=== PATIENT | female | born 1965 | race Caucasian/White ===

== ENCOUNTER 2019-08-30 06:50 | Emergency (ER) | payer BC ==
[2019-08-30] MEDS ORDERED: Morphine 10 MG/ML VIAL ONE (07:39)
[2019-08-30] MEDS ORDERED: Ondansetron PF 4 MG/2 ML Vial ONE (07:40)
[2019-08-30 08:22] LABS: #Basophils 0.1 thou/uL (0.0-0.2); #Eosinphils 0.2 thou/uL (0.0-0.7); #Lymphocytes 1.3 thou/uL (1.20-3.40); #Monocytes 0.5 thou/uL (0.11-0.59); #Neutrophils 3.6 thou/uL (1.40-6.50); %Basophils 1.1 % (0.0-1.0); %Eosinophils 3.6 % (0.0-10.0); %Lymphocytes 22.6 % (21.0-51.0); %Monocytes 9.4 % (0.0-10.0); %Neutrophils 63.3 % (42.0-75.0); Hemoglobin 13.9 g/dL (12.0-16.0); Mean Corpuscular HGB CONC 34.2 g/dL (32.0-36.0); Mean Corpuscular Hemoglobin 31.7 pg (27.0-31.0); Mean Corpuscular Volume 92.7 fL (78.0-98.0); Mean Platelet Volume 9.3 fL (7.4-10.4); Platelet Count 159 thou/uL (130-400); RBC Distribution Width 12.5 % (11.5-14.5); Red Blood Cell (RBC) Count 4.37 mill/uL (4.20-5.40); White Blood Cell (WBC) Count 5.6 thou/uL (4.8-10.8)
[2019-08-30 08:36] LABS: Anion Gap 13 mmol/L (10-20); BUN (Urea Nitrogen) 18 mg/dL (9.8-20.1); Calc. Creatinine Clearance 0 mL/min (70-130); Calcium 9.2 mg/dL (7.8-10.44); Carbon Dioxide 24 mmol/L (22-29); Chloride 106 mmol/L (98-107); Estimated GFR-MDRD 69; Glucose 83 mg/dL (70-105); Potassium 4.8 mmol/L (3.5-5.1); Sodium 138 mmol/L (136-145)
--- NOTE | 2019-08-30 08:39 | CT ---
CT BRAIN WITHOUT CONTRAST: HISTORY: Injury. Fall. Loss of consciousness. FINDINGS: No evidence of acute infarct, hemorrhage, midline shift or abnormal extraaxial fluid collection is se en. The ventricular size is normal and the basilar cisterns are patent. The bony calvarium is intact. The visualized paranasal sinuses and mastoid air cells are well aerated. There is a large scalp cont usion in the right paroccipital region. IMPRESSION: No CT evidence of acute intracranial process. POS: OFF
--- NOTE | 2019-09-02 02:48 | EKG ---
Test Reason : FALL WTIH LOC Blood Pressure : / mmHG Vent. Rate : 067 BPM Atrial Rate : 067 BPM P-R Int : 178 ms QRS Dur : 086 ms QT Int : 406 ms P-R-T Axes : 060 012 045 degrees QTc Int : 429 ms Normal sinus rhythm Normal ECG Confirmed by BERNARD SORIANO MD ([id number]), order editor GUY DE LEON ([id number]) on 09/02/2019 2:48:25 AM Referred By: Confirmed By:BERNARD SORIANO MD
== END 2019-08-30 09:33 | disposition home or self-care (01) ==
LOC: ERS 06:50
DX: R55 Syncope and collapse (principal); S00.03XA Contusion of scalp, initial encounter; M54.5 Low back pain; E78.5 Hyperlipidemia, unspecified; Z79.899 Other long term (current) drug therapy; W18.30XA Fall on same level, unspecified, initial encounter
CPT/HCPCS: 70450; 80048; 85025; 93005; 96374; 96375; J2270; J2405

== ENCOUNTER 2022-04-05 11:19 | Outpatient (CLI) | payer BC ==
[2022-04-06 00:48] LABS: SARS-CoV-2 PCR by NAA Not Detected (NotDetected)
== END 2022-04-05 11:20 | disposition home or self-care (01) ==
LOC: LABBT 11:19
PROVIDERS: ATTEND Specialist
DX: Z20.822 Contact with and (suspected) exposure to COVID-19 (principal)
CPT/HCPCS: U0003; U0005

== ENCOUNTER 2022-04-08 10:31 | Outpatient (CLI) | payer BC | END 2022-04-08 10:32 | disposition home or self-care (01) | LOC: RAD 10:31 | PROVIDERS: ATTEND Specialist | DX: K44.9 Diaphragmatic hernia without obstruction or gangrene (principal) | CPT/HCPCS: 74246 ==

== ENCOUNTER 2022-04-12 07:55 | Outpatient (CLI) | payer BC ==
[2022-04-12 20:00] LABS: SARS-CoV-2 PCR by NAA Not Detected (NotDetected)
== END 2022-04-12 07:56 | disposition home or self-care (01) ==
LOC: LABBT 07:55
PROVIDERS: ATTEND Internal Medicine Gastroenterology
DX: K44.9 Diaphragmatic hernia without obstruction or gangrene (principal); K21.9 Gastro-esophageal reflux disease without esophagitis; Z20.822 Contact with and (suspected) exposure to COVID-19
CPT/HCPCS: U0003; U0005

== ENCOUNTER → 2022-04-14 | Day surgery (SDC) | payer BC | END | disposition home or self-care (01) | LOC: ENDO/OP 12:39 | PROVIDERS: ATTEND Internal Medicine Gastroenterology | DX: K21.9 Gastro-esophageal reflux disease without esophagitis (principal); K44.9 Diaphragmatic hernia without obstruction or gangrene; Z88.0 Allergy status to penicillin; Z88.5 Allergy status to narcotic agent | CPT/HCPCS: 91010 ==

== ENCOUNTER 2022-05-19 08:53 | Outpatient (CLI) | payer BC ==
[2022-05-19] MEDS ORDERED: Iopamidol 370 76% 100 ML VIAL ONE (11:13)
== END 2022-05-19 08:54 | disposition home or self-care (01) ==
LOC: CT 08:53
PROVIDERS: ATTEND Specialist
DX: K44.9 Diaphragmatic hernia without obstruction or gangrene (principal)
CPT/HCPCS: 74177; Q9967

== ENCOUNTER 2023-06-14 08:48 | Outpatient (CLI) | payer BC ==
[2023-06-14 11:42] LABS: Chloride 109 mmol/L (98-107); Potassium 4.7 mmol/L (3.5-5.1); Sodium 141 mmol/L (136-145)
[2023-06-14 11:43] LABS: Anion Gap 17 mmol/L (10-20); BUN (Urea Nitrogen) 18 mg/dL (9.8-20.1); Calc. Creatinine Clearance 0 mL/min (70-130); Calcium 9.4 mg/dL (7.6-10.4); Carbon Dioxide 20 mmol/L (22-29); Estimated GFR 62; Glucose 74 mg/dL (70-105)
[2023-06-14 12:45] LABS: #Basophils 0.1 10x3/uL (0.0-0.2); #Eosinphils 0.3 10x3/uL (0.0-0.5); #Monocytes 0.5 10x3/uL (0.0-1.1); #Neutrophils 2.3 10x3/uL (1.5-8.4); %Basophils 2.1 % (0.0-2.0); %Eosinophils 5.2 % (0.0-6.0); %Lymphocytes 37.3 % (18.0-47.0); %Monocytes 10.4 % (0.0-10.0); %Neutrophils 44.8 % (40.0-75.0); Mean Corpuscular HGB CONC 32.3 g/dL (32.0-36.0); Mean Corpuscular Hemoglobin 30.4 pg (27.0-33.0); Mean Corpuscular Volume 94.1 fl (81.6-98.3); Mean Platelet Volume 11.9 fl (7.4-10.4); Platelet Count 174 10x3/uL (150-450); RBC Distribution Width 14.5 % (11.5-14.5); Red Blood Cell (RBC) Count 4.61 10x6/uL (3.90-5.03); White Blood Cell (WBC) Count 5.2 10x3/uL (3.5-10.5)
[2023-06-14 14:13] LABS: Platelet Clumps SLIGHT; RBC Morph Comment Within Normal Limits
[2023-06-14 14:14] LABS: Platelet Adequacy Comment Appears Adequate
[2023-06-14 14:15] LABS: Large Platelets SLIGHT (None Seen)
== END 2023-06-14 08:49 | disposition home or self-care (01) ==
LOC: LABBT 08:48
PROVIDERS: ATTEND Specialist
DX: Z01.818 Encounter for other preprocedural examination (principal); C50.912 Malignant neoplasm of unspecified site of left female breast
CPT/HCPCS: 71046; 80048; 85025; 93005; 93010

== ENCOUNTER 2023-06-15 07:23 | Outpatient (CLI) | payer BC | END 2023-06-15 07:24 | disposition home or self-care (01) | LOC: SCSMRI 07:23 | PROVIDERS: ATTEND Internal Medicine Gastroenterology | DX: C50.919 Malignant neoplasm of unspecified site of unspecified female breast (principal); R89.8 Other abnormal findings in specimens from other organs, systems and tissues | CPT/HCPCS: 74183 ==

== ENCOUNTER 2023-06-16 07:13 | Day surgery (SDC) | payer BC ==
[2023-06-14 09:20] VITALS: BMI 32.3
[2023-06-16] MEDS ORDERED: Ketorolac Tromethamine 30 MG/ML VIAL ONE (09:56)
[2023-06-16] MEDS ORDERED: Acetaminophen 500 MG TAB ONE (09:56)
[2023-06-16] MEDS ORDERED: Bupivacaine HCl 0.5%/Epinephrine 1:200,000/PF 30 ml Vial ONE (11:19)
[2023-06-16] MEDS ORDERED: Isosulfan Blue 50 MG/5 ML VIAL ONE (11:20)
[2023-06-16] MEDS ORDERED: fentaNYL PF 100 MCG/2 ML SYRINGE ONE ×2 (11:25→11:26)
[2023-06-16] MEDS ORDERED: Famotidine/PF 20 mg/2ml Vial ONE (11:26)
[2023-06-16] MEDS ORDERED: Sodium Chloride 0.9% 100 ML ONE (11:30)
[2023-06-16] MEDS ORDERED: CEFAZOLIN 2 GM VIAL ONE (11:30)
[2023-06-16] MEDS ORDERED: Lidocaine 1% PF 5 ML VIAL ONE (11:46)
[2023-06-16] MEDS ORDERED: PROPOFOL 200 MG/20 ML VIAL ONE (11:46)
[2023-06-16] MEDS ORDERED: Ondansetron PF 4 MG/2 ML Vial ONE (11:46)
[2023-06-16] MEDS ORDERED: Dexamethasone 20 MG/5 ML VIAL ONE (11:46)
[2023-06-16] MEDS ORDERED: ePHEDrine Sulfate 50 MG/10 ML VIAL ONE (11:46)
[2023-06-16] MEDS ORDERED: Lidocaine 2% PF 5 ML VIAL ONE (11:54)
== END 2023-06-16 15:15 | disposition home or self-care (01) ==
LOC: SDC 07:13
PROVIDERS: ATTEND Specialist
PROC: 0HBU0ZZ Excision of Left Breast, Open Approach (ICD-10-PCS; principal; 2023-06-16)
DX: C50.912 Malignant neoplasm of unspecified site of left female breast (principal); Z88.0 Allergy status to penicillin; Z88.6 Allergy status to analgesic agent; M06.9 Rheumatoid arthritis, unspecified; Z79.899 Other long term (current) drug therapy
CPT/HCPCS: 76098; 78195; 88307; 88342; A9541; C1713; J1100; J1885; J2001; J2405; J2704; J3490; Q9968; S0028

== ENCOUNTER 2023-07-19 08:16 | Day surgery (SDC) | payer BC ==
[2023-07-15 11:00] VITALS: BMI 32.9
[2023-07-19] MEDS ORDERED: Ketorolac Tromethamine 30 MG/ML VIAL ONE (08:35)
[2023-07-19] MEDS ORDERED: Acetaminophen 500 MG TAB ONE (08:35)
[2023-07-19] MEDS ORDERED: EPINEPHrine 1 MG/ML AMP ONE (08:50)
[2023-07-19] MEDS ORDERED: Bupivacaine 0.25% HCL 30 ML VIAL ONE (08:50)
[2023-07-19] MEDS ORDERED: fentaNYL PF 100 MCG/2 ML SYRINGE ONE (08:53)
[2023-07-19] MEDS ORDERED: Sodium Chloride 0.9% 100 ML ONE (09:01)
[2023-07-19] MEDS ORDERED: CEFAZOLIN 2 GM VIAL ONE (09:01)
[2023-07-19] MEDS ORDERED: Ondansetron PF 4 MG/2 ML Vial ONE (09:29)
[2023-07-19] MEDS ORDERED: Lidocaine 1% PF 5 ML VIAL ONE (09:29)
[2023-07-19] MEDS ORDERED: Dexamethasone 20 MG/5 ML VIAL ONE (09:29)
[2023-07-19] MEDS ORDERED: PROPOFOL 200 MG/20 ML VIAL ONE (09:29)
== END 2023-07-19 12:57 | disposition home or self-care (01) ==
LOC: SDC 08:16
PROVIDERS: ATTEND Specialist
PROC: 0HBU0ZZ Excision of Left Breast, Open Approach (ICD-10-PCS; principal; 2023-07-19)
DX: C50.912 Malignant neoplasm of unspecified site of left female breast (principal); Z17.0 Estrogen receptor positive status [ER+]; Z88.0 Allergy status to penicillin; Z88.6 Allergy status to analgesic agent
CPT/HCPCS: 88307; C1713; C1889; J0171; J1100; J1885; J2405; J2704; J3490; S0020